=== PATIENT | female | born 1970 | race Two or more races ===

== ENCOUNTER 2021-07-09 15:31 | Outpatient (REF) | payer BC, SELFPAY ==
--- NOTE | ~2021-07-09 | MM_ITS ---
EXAMINATION: MM SCREENING DIGITAL BREAST TOMOSYNTHESIS, BILATERAL CLINICAL INFORMATION: Screening. Asymptomatic. The lifetime risk of breast cancer based on the Tyrer-Cuzick Model is 13%. COMPARISON: Mammography: 12/09/2019, 08/13/2018, 07/18/2017 TECHNIQUE: Digital breast tomosynthesis is performed in both the craniocaudal and mediolateral oblique views along with computer-aided detection (CAD). Synthesized 2D images are generated from the tomosynthesis. FINDINGS: The breasts are heterogeneously dense, which may obscure small masses (ACR BI-RADS breast composition Category c). Parenchymal pattern is similar to prior studies and there is no interval mass or architectural abnormality or developing density. The axilla and skin contours are unremarkable. There is biopsy clip marker again seen central anterior 11:00 right breast. There are scattered bilateral similar appearing calcifications, again more numerous on the left. Focal mild increased similar appearing calcifications are suggested central mid 12:00 left breast. Patient will be recalled for additional magnification views to fully characterize. MM/MM tomosynthesis screening BI IMPRESSION: 1. Left: Increased calcifications central mid 12:00 position. 2. Right: No mammographic evidence of malignancy. ASSESSMENT: BI-RADS 0: Incomplete - Need Additional Imaging Evaluation RECOMMENDATION: 1. Additional views of the left breast (magnification CC, magnification ML). 2. Radiology department staff will contact the patient for additional imaging. This patient's information was entered into a reminder system with a target due date for their next mammogram.
== END 2021-07-09 15:32 | disposition home or self-care (01) ==
LOC: HO.MAMMO 15:31
PROVIDERS: PCP Internal Medicine; Visit Provider Internal Medicine
DX: Z12.31 Encounter for screening mammogram for malignant neoplasm of breast (principal)
CPT/HCPCS: 77063; 77067

== ENCOUNTER 2021-07-16 08:44 | Outpatient (REF) | payer BC, SELFPAY ==
--- NOTE | ~2021-07-16 | MM_ITS ---
EXAMINATION: MM DIAGNOSTIC DIGITAL MAMMOGRAPHY, LEFT CLINICAL INFORMATION: Recall from screening for mild increased calcifications central mid left breast. COMPARISON: Mammography: 01/06/2022, 12/09/2019 TECHNIQUE: Digital mammography is performed in the following views: Magnification CC, magnification ML. FINDINGS: The breasts are heterogeneously dense, which may obscure small masses (ACR BI-RADS breast composition Category c). US additional views show scattered calcifications in the left breast with some additional loosely grouped calcifications central left breast approximately 4 cm from nipple. There are also some punctate fine calcifications on CC view just medial to midline 6 cm from nipple. The MLO view shows scattered calcifications, many showing layering milk of calcium. There are no focal suspicious calcifications. Calcifications are benign-appearing and will be reassessed again in 6 months. Results are discussed with the patient at time of visit. MM/MM added views LT IMPRESSION: Benign-appearing calcifications central left breast slightly increased from prior studies. ASSESSMENT: BI-RADS 3: Probably Benign RECOMMENDATION: Diagnostic left mammography in 6 months. This patient's information was entered into a reminder system with a target due date for their next mammogram.
== END 2021-07-16 08:45 | disposition home or self-care (01) ==
LOC: HO.MAMMO 08:44
PROVIDERS: PCP Internal Medicine; Visit Provider Internal Medicine
DX: R92.1 Mammographic calcification found on diagnostic imaging of breast (principal)
CPT/HCPCS: 77065

== ENCOUNTER 2021-09-11 12:40 | Outpatient (REF) | payer BC, SELFPAY ==
--- NOTE | ~2021-09-11 | US_ITS ---
EXAMINATION: US PELVIS CLINICAL INFORMATION: Excess and frequent menses; the last menstrual period was on 08/28/2021. COMPARISON: Pelvic ultrasound dated 08/24/2015. TECHNIQUE: Ultrasound of the pelvis is performed using both transabdominal and transvaginal transducers along with Doppler. Transvaginal imaging is performed due to inadequate visualization transabdominally. FINDINGS: Uterus: The uterus is anteverted and anteflexed. The uterus measures 9.3 x 4.3 x 5.9 cm. The double wall endometrial thickness is 0.7 mm. The uterus is smooth in contour and has normal myometrial echogenicity. No visible fibroid. Nabothian cysts are seen within the cervix. Adnexa: Both ovaries are visualized.There is normal color flow to the adnexa. There is no ovarian torsion. There is no pelvic ascites or fluid collection. Right ovary measures 1.9 x 1.7 x 1.4 cm (volume 2.3 mL). Left ovary measures 2.1 x 2.2 x 2.5 cm (volume 5.8 mL). A 2.3 cm in maximal diameter simple left ovarian cyst is incidentally noted. US/US pelvic and transvaginal IMPRESSION: 1. A 2.3 cm in maximal diameter simple left ovarian cyst has a benign appearance. No imaging follow-up is recommended. 2. Nabothian cysts are seen within the cervix. 3. Otherwise, unremarkable examination.
== END 2021-09-11 12:41 | disposition home or self-care (01) ==
LOC: HO.HMGCX 12:40
PROVIDERS: PCP Internal Medicine; Visit Provider Advanced Practice Midwife
DX: N92.1 Excessive and frequent menstruation with irregular cycle (principal)
CPT/HCPCS: 76830; 76856

== ENCOUNTER 2022-01-14 14:50 | Outpatient (REF) | payer BC, SELFPAY ==
--- NOTE | ~2022-01-14 | MM_ITS ---
EXAMINATION: MM DIAGNOSTIC DIGITAL BREAST TOMOSYNTHESIS, LEFT CLINICAL INFORMATION: Short interval six-month follow-up benign-appearing calcifications left breast. The lifetime risk of breast cancer based on the Tyrer-Cuzick Model is 13%. COMPARISON: Mammography: 07/16/2021, 07/09/2021 (BI-RADS 0), 12/09/2019 TECHNIQUE: Digital breast tomosynthesis is performed in both the craniocaudal and mediolateral oblique views along with computer-aided detection (CAD). Synthesized 2D images are generated from the tomosynthesis. Additional magnification left CC and magnification left ML views are obtained. FINDINGS: The breasts are heterogeneously dense, which may obscure small masses (ACR BI-RADS breast composition Category c). Breast tissue composition borders on average fibroglandular. There is no interval mass or architectural abnormality or developing density. The axilla and skin contours are unremarkable. There are scattered calcifications again seen upper outer left breast. Calcifications central and central 6:00 left breast are stable to decreased. There are no increasing calcifications or pleomorphic types. They will be reassessed again at time of annual bilateral mammography, due in 6 months. Results are provided to the patient at time of visit by the technologist. MM/MM tomosynthesis diagnostic LT IMPRESSION: No significant changes from prior exam. ASSESSMENT: BI-RADS 3: Probably Benign RECOMMENDATION: Diagnostic mammography at time of annual bilateral mammography, due in 6 months. This patient's information was entered into a reminder system with a target due date for their next mammogram.
== END 2022-01-14 14:51 | disposition home or self-care (01) ==
LOC: HO.MAMMO 14:50
PROVIDERS: Visit Provider Internal Medicine
DX: R92.1 Mammographic calcification found on diagnostic imaging of breast (principal)
CPT/HCPCS: 77061; 77065

== ENCOUNTER 2022-07-15 14:24 | Outpatient (REF) | payer BC, SELFPAY ==
--- NOTE | ~2022-07-15 | MM_ITS ---
EXAMINATION: MM DIAGNOSTIC DIGITAL BREAST TOMOSYNTHESIS, BILATERAL CLINICAL INFORMATION: Due for yearly. Also follow-up probable benign calcifications left breast. The lifetime risk of breast cancer based on the Tyrer-Cuzick Model is 13%. COMPARISON: Mammography: 01/14/2022, 07/16/2021, 07/09/2021 (BI-RADS 0), 12/09/2019 TECHNIQUE: Digital breast tomosynthesis is performed in both the craniocaudal and mediolateral oblique views along with computer-aided detection (CAD). Synthesized 2D images are generated from the tomosynthesis. Additional magnification left CC and magnification left ML x2 views are obtained. FINDINGS: The breasts are heterogeneously dense, which may obscure small masses (ACR BI-RADS breast composition Category c). Breast tissue composition borders on average fibroglandular. There is no developing density or interval mass or architectural abnormality. The axilla and skin contours are unremarkable. Right breast has biopsy clip marker central mid 9:30 position. There are scattered bilateral calcifications, left for follow-up are similar to prior diagnostic exams. Left breast calcifications will be reassessed again at annual bilateral mammography, due in 12 months. Results are provided to the patient at time of visit by the technologist. MM/MM tomosynthesis diagnostic BI IMPRESSION: -No mammographic evidence of malignancy. -Probable benign calcifications left breast similar to prior diagnostic exams. ASSESSMENT: BI-RADS 3: Probably Benign RECOMMENDATION: Diagnostic mammography at time of next annual exam, due in 12 months. This patient's information was entered into a reminder system with a target due date for their next mammogram.
== END 2022-07-15 14:25 | disposition home or self-care (01) ==
LOC: HO.MAMMO 14:24
PROVIDERS: PCP Internal Medicine; Visit Provider Internal Medicine
DX: R92.1 Mammographic calcification found on diagnostic imaging of breast (principal)
CPT/HCPCS: 77062; 77066

== ENCOUNTER 2022-07-31 14:07 | Outpatient (REF) | payer BC, SELFPAY ==
--- NOTE | ~2022-07-31 | US_ITS ---
EXAMINATION: US DIAGNOSTIC ULTRASOUND BREAST, LEFT CLINICAL INFORMATION: Chronic fullness outer left breast noted by patient. Pain 6-7 months. Prior history benign left breast cyst aspiration 2018. COMPARISON: Mammography 07/15/2022, 01/14/2022, cyst aspiration 08/19/2018, ultrasound left breast 08/13/2018. TECHNIQUE: Ultrasound of the breast is performed with real-time wagner scale imaging and color Doppler. Patient is able to point areas of concern at time of imaging. FINDINGS: There is no focal suspicious finding. There is no cystic or solid mass, architectural abnormality, duct ectasia, or edema in the soft tissue planes. No hyperemia on color Doppler. No skin thickening. Results are discussed with the patient at time of visit. If there remains a clinically palpable concern, surgical consult may be considered for further assessment. Otherwise, patient due for follow-up diagnostic mammography in 12 months (probable benign left breast calcifications). US/US breast LT limited IMPRESSION: Normal study. ASSESSMENT: BI-RADS 1: Negative RECOMMENDATION: 1. Patient should be managed based on the clinical impression. If there remains a clinically palpable concern, further evaluation may be considered with surgical consult. Decision to proceed with biopsy should be based on clinical grounds and degree of clinical concern. 2. Otherwise, bilateral diagnostic mammography in 12 months (follow-up probable benign calcifications). This patient's information was entered into a reminder system with a target due date for their next mammogram.
== END 2022-07-31 14:08 | disposition home or self-care (01) ==
LOC: HO.MAMMO 14:07
PROVIDERS: PCP Internal Medicine; Visit Provider Internal Medicine
DX: N63.21 Unspecified lump in the left breast, upper outer quadrant (principal)
CPT/HCPCS: 76642

== ENCOUNTER → 2022-08-12 12:34 | Outpatient (BNVA) | payer BC, SELFPAY | PROVIDERS: PCP Internal Medicine; Visit Provider Surgery | DX: Z13.89 Encounter for screening for other disorder (principal) ==

== ENCOUNTER 2022-08-18 15:32 | Outpatient (REF) | payer BC, SELFPAY ==
--- NOTE | ~2022-08-18 | US_ITS ---
EXAMINATION: US PELVIC AND TRANSVAGINAL CLINICAL INFORMATION: Abnormal uterine bleeding. COMPARISON: None available. TECHNIQUE: Ultrasound of the pelvis is performed using both transabdominal and transvaginal transducers along with Doppler. Transvaginal imaging is performed due to inadequate visualization transabdominally. FINDINGS: UTERUS: The uterus is anteverted and measures 10.6 x 4.8 x 5.1 cm. The double wall endometrial thickness is 10 mm. Small amount of free fluid is present in the endometrial canal. The uterus is smooth in contour and has normal myometrial echogenicity. No visible fibroid. ADNEXA: Both ovaries are visualized. There is normal color flow to the adnexa. There is no ovarian torsion. There is no pelvic ascites or fluid collection. Right ovary measures 3.8 x 1.9 x 3.4 cm for a volume of 12.8 mL which includes 2 simple cysts measuring 1.3 and 2.1 cm. Left ovary measures 2.3 x 1.3 x 1.7 cm for a volume of 2.7 mL. US/US pelvic and transvaginal IMPRESSION: No significant abnormality is seen.
== END 2022-08-18 15:33 | disposition home or self-care (01) ==
LOC: HO.US 15:32
PROVIDERS: PCP Internal Medicine; Visit Provider Advanced Practice Midwife
DX: N93.9 Abnormal uterine and vaginal bleeding, unspecified (principal)
CPT/HCPCS: 76830; 76856

== ENCOUNTER 2023-01-15 15:54 | Outpatient (REF) | payer BC, SELFPAY ==
[2023-01-15 17:50] LABS: MANUAL DIFF FLAG NO
[2023-01-15 18:11] LABS: Basophils Percent Auto 0.6 % (0-2); Eosinophils Absolute Auto 0.2 X10*3/uL (0.0-0.4); Eosinophils Percent Auto 2.7 % (0-4); Hemoglobin 10.8 g/dl (12.0-16.0); Imm Gran Abs Auto 0.02 X10*3/uL (0.00-0.03); Imm Gran Pct Auto 0.3 % (0.0-0.4); Lymphocytes Absolute Auto 2.1 X10*3/uL (1.2-4.9); Lymphocytes Percent Auto 30.6 % (20-40); Mean Corpuscular HGB Conc 32.7 g/dl (31.0-35.0); Mean Corpuscular Hemoglobin 28.3 pg (27.0-33.0); Mean Corpuscular Volume 86.4 fL (80.0-98.0); Mean Platelet Volume 11.4 fL (9.4-12.3); Monocytes Absolute Auto 0.7 X10*3/uL (0.1-1.2); Monocytes Percent Auto 10.6 % (2-11); Neutrophils Absolute Auto 3.8 x10*3/uL (2.0-8.3); Neutrophils Percent Auto 55.2 % (45-73); Platelet Count 256 X10*3/uL (160-400); Red Blood Count 3.82 X10*6/uL (4.20-5.50); Red Cell Distribution Width 14.4 % (11.0-16.0)
[2023-01-15 18:50] LABS: Alanine Aminotransferase 11 U/L (0-31); Albumin Level 4.1 g/dL (3.5-5.0); Alkaline Phosphatase 61 U/L (39-117); Anion Gap 13 (12-20); Aspartate Amino Transferase 19 U/L (5-31); Bilirubin Direct < 0.2 mg/dL (0.0-0.5); Bilirubin Total 0.1 mg/dL (0.0-1.0); Blood Urea Nitrogen 20 mg/dL (9-16); C Reactive Protein < 0.10 mg/dL (< or = 0.50); Carbon Dioxide 23 mmol/L (22-29); Chloride 105 mmol/L (96-108); Estimated Glomerular Filt Rate > 60; Glucose Random 87 mg/dL (60-115); Iron 63 mcg/dL (30-160); Percent Iron Saturation 21 % (15-50); Sodium 137 mmol/L (135-145); Total Iron Binding Capacity 303 mcg/dL (228-428); Total Protein 7.3 g/dL (6.5-8.0); Unsaturated Iron Binding 240 ug/dL
[2023-01-15 18:52] LABS: Vitamin B12 653 pg/mL (200-900)
[2023-01-15 18:54] LABS: TSH reflex Free T4 0.75 uIU/mL (0.32-4.0)
[2023-01-20 21:37] LABS: Lyme Abs Screen <0.90 index
== END 2023-01-15 15:55 | disposition home or self-care (01) ==
LOC: HO.CHCLDS 15:54
PROVIDERS: Visit Provider Pediatrics
DX: D50.0 Iron deficiency anemia secondary to blood loss (chronic) (principal)
CPT/HCPCS: 36415; 80048; 80076; 82607; 83540; 84443; 85025; 86140; 86617; 86618

== ENCOUNTER 2023-02-12 | Outpatient (REF) | payer BC, SELFPAY | END 2023-02-12 00:01 | disposition home or self-care (01) | LOC: HO.LNP | PROVIDERS: Visit Provider Family Medicine | DX: N93.9 Abnormal uterine and vaginal bleeding, unspecified (principal) | CPT/HCPCS: 88305 ==

== ENCOUNTER 2023-07-02 14:54 | Outpatient (AMB) | payer BC, SELFPAY ==
--- NOTE | 2023-07-02 15:10 | A.OFFVIS_ITS ---
Intake Vital Signs 07/02/23 15:11 Height 5 ft 2 in Weight 143 lb BMI 26.2 Intake Visit Reasons: N/P left elbow pain Intake Note: Olga 53 yr old female who is right hand dominant, presents today for a new patient visit for her left shoulder pain. States pain started about 2 months . Recalls no injury. Patient explains her pain is mainly by her elbow on lateral aspect of elbow. Patient states her pain increases when lifting and reparative motion, and worsens at nigh time. Denies therapy, injection and has numbness and tingling in both hands. 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 She states she has pain at the lateral aspect of her elbow which is aggravated with lifting, repetitive motions, and at night. She also c/o numbness and tingling in her bilateral hands. She denies any recent injury has not had any treatment in the past. [facility] Medical History (Updated 07/02/23 @ 15:31 by Juhi Carson PA-C) Anemia Surgical History History of Family History (Updated 08/11/22 @ 14:02 by LINDA Khan) Maternal Aunt Colon cancer Social History Alcohol intake: current Alcohol intake frequency: holidays/special occasions only Alcohol type: other Patient Tobacco Use Status: Never used Tobacco Current occupation: [employer]/ rt hand Review of Systems Const All systems reviewed & are unremarkable except as noted in HPI and below Physical Exam Vital Signs: BMI result Body Mass Index 26.2 Const General: cooperative, healthy appearing, comfortable, no acute distress, well developed and alert Orientation/consciousness: patient oriented x3 HEENT Head: Yes normal to inspection, Yes normocephalic and Yes atraumatic Eyes General: appearance normal, both eyes and all related structures Resp Effort & Inspection: normal respiratory effort and able to speak in complete sentences Cardio Rate: regular rate Peripheral pulses: Peripheral pulses 2+ throughout GI Palpation (GI): Soft to palpation Skin Lesions: no lesions Rashes: no rashes Neuro General: patient oriented x3 Extrem Other: Left elbow: Skin intact. No erythema or swelling. ROM full without pain. Tenderness over the lateral epicondyle and pain with resisted wrist extension. NVI. Assessment & Plan Assessment & Plan (1) Left lateral epicondylitis: Code(s): M77.12 - Lateral epicondylitis, left elbow Plan We discussed options which include PT, NSAIDs and injections. The patient will defer on the injection today and proceed with PT and NSAIDs. If symptoms persist, the patient will contact me for an injection, otherwise, PRN. Orders: Orders OT Evaluation and Treatment 07/02/23 M77.12 - Lateral epicondylitis, left elbow Patient Instructions: Scribed for Juhi Carson PA-C, by Gaston Oliveira medical housekeeper, on 07/02/2023 at 3:00 PM EST. I, Juhi Carson PA-C, have personally reviewed and agree with the information entered by the scribe. Coding Level of Care Code New Pt Level 3 (81831) Diagnoses Left lateral epicondylitis M77.12
[2023-07-02 15:11] VITALS: BMI 26.2
== END 2023-07-02 15:36 | disposition home or self-care (01) ==
PROVIDERS: PCP Internal Medicine; Visit Provider Physician Assistant
DX: M77.12 Lateral epicondylitis, left elbow (principal)
CPT/HCPCS: 99203

== ENCOUNTER → 2023-07-02 14:54 | Outpatient (BNVA) | payer BC, SELFPAY | PROVIDERS: PCP Internal Medicine; Visit Provider Physician Assistant ==

== ENCOUNTER 2023-07-16 14:46 | Outpatient (REF) | payer BC, SELFPAY ==
--- NOTE | ~2023-07-16 | MM_ITS ---
EXAMINATION: MM DIAGNOSTIC DIGITAL BREAST TOMOSYNTHESIS, BILATERAL CLINICAL INFORMATION: 1 year follow-up left breast probably benign calcifications, several groups. Patient also due for routine bilateral screening. COMPARISON: Mammography: 07/15/2022, 01/14/2022, 07/16/2021, 07/09/2021 (BI-RADS 0), 12/09/2019. TECHNIQUE: Digital breast tomosynthesis is performed in both the craniocaudal and mediolateral oblique views along with computer-aided detection (CAD). Synthesized 2D images are generated from the tomosynthesis. In addition to standard views, 2-D spot magnification left CC x2 and ML views x2 were performed. FINDINGS: The breasts are heterogeneously dense, which may obscure small masses (ACR BI-RADS breast composition Category c). Breast tissue borders on extremely dense. No developing mass, architectural distortion, skin thickening, or axillary abnormality. There is a post benign biopsy clip again noted in the slightly upper outer right breast, middle one third. Scattered right breast calcifications are unchanged and appear benign. The heterogeneously dense and somewhat nodular parenchymal pattern is unchanged from multiple prior exams. At least 3 loose groups of calcifications are present in the left breast upper, mid, and lower quadrants, predominantly mid and lateral, which appears stable in number, morphology, without aggressive changes. Several appear to again layer suggesting regions of milk of calcium. There has been no significant change since 07/09/2021, and these findings are benign. MM/MM tomosynthesis diagnostic BI IMPRESSION: There are no findings suspicious for malignancy in either breast. Scattered, loosely grouped, and layering calcifications in the left breast are stable from 07/09/2021, consistent with benignity. No aggressive changes over 2 years. No further follow-up recommended. Stable benign findings right breast. Recommend the patient return to routine annual screening to include both breasts. ASSESSMENT: BI-RADS BI-RADS 2 - Benign Findings RECOMMENDATION: 1 year F/U Results were provided to the patient at time of visit by the technologist. This patient's information was entered into a reminder system with a target due date for their next mammogram.
== END 2023-07-16 14:47 | disposition home or self-care (01) ==
LOC: HO.MAMMO 14:46
PROVIDERS: PCP Internal Medicine; Visit Provider Internal Medicine
DX: R92.1 Mammographic calcification found on diagnostic imaging of breast (principal)
CPT/HCPCS: 77062; 77066

== ENCOUNTER → 2023-07-16 15:00 | Outpatient (BNV) | payer BC, SELFPAY | PROVIDERS: PCP Internal Medicine; Visit Provider Radiology Diagnostic Radiology | DX: R92.1 Mammographic calcification found on diagnostic imaging of breast (principal); R92.333 Mammographic heterogeneous density, bilateral breasts | CPT/HCPCS: 77062; 77066 ==

== ENCOUNTER 2023-08-05 15:30 | Outpatient (RCR) | payer BC, SELFPAY ==
--- NOTE | 2023-07-15 16:26 | MHC.OT.EP ---
[address] [phone] Occupational Therapy Plan of Care Patient Name: Olga Anderson I Date of Evaluation: 07/15/23 Diagnosis: Left elbow lateral epicondylitis Pain Location: 9 left lateral elbow Pain Score: 9 Pain Scale Used: Numeric (0 - 10) Aggravating Factors: Gripping. Lifting..carrying Alleviating Factors: Assessment: Pt is a 53 yo right dominant female with worsening left lateral elbow pain over the past few months. 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 She has been on light duty this past wk. Pt presents with S+S of left lateral epicondylitis and underlying CTS sx. She reports she has not worn her wrist splint at night due to discomfort. 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 Thank you once again for your referral.
--- NOTE | 2023-10-13 13:36 | MHC.OT.DC ---
[address] [phone] F: [phone] Occupational Therapy Discharge Note Patient Name: Olga Anderson I Provider: Juhi Carson Diagnosis: Left elbow lateral epicondylitis Date of Surgery: Date of Evaluation: 07/15/23 Date of Discharge: Treatments to Date: 5 Cancellations to Date: No Shows to Date: Discharge Status: Discharge Summary: Pt reports increased elbow pain (a 9/10 today) She reports right hand use only at work with very light left hand use on light duty Pt has been seen x 4 wks with increased ease with elbow ROM and Mill stretch. 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
== END 2023-10-13 13:37 | disposition home or self-care (01) ==
LOC: HO.OT 15:30
PROVIDERS: PCP Internal Medicine; Visit Provider Physician Assistant
DX: M77.12 Lateral epicondylitis, left elbow (principal)
CPT/HCPCS: 97033; 97035; 97110; 97140; 97166; 97535

== ENCOUNTER 2023-08-10 13:08 | Outpatient (AMB) | payer BC, SELFPAY ==
--- NOTE | 2023-08-10 13:26 | MHC.OFFVIS ---
Intake Vital Signs 08/10/23 13:28 Height 5 ft 2 in Weight 143 lb BMI 26.2 Intake Visit Reasons: ov- left elbow pain Intake Note: Olga a 53 year old female presents today for a follow up of left elbow. Patient reports that she has completed OT however she continues to have pain and discomfort. States that she is currently doing light duty at work. Allergies No Known Allergies Allergy (Unverified 08/10/23 13:30) Medication List - Last Reconciled 08/10/23 by Juhi Carson PA-C No Known Home Meds HPI ov- left elbow pain HPI Details 53 yo female returns to the office today f/u left elbow pain. She states she has been attending OT with some relief. She continues to have some discomfort at the end of her shift at work. 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 Review of Systems Const All systems reviewed & are unremarkable except as noted in HPI and below Physical Exam Vital Signs: BMI result Body Mass Index 26.2 Const General: cooperative, healthy appearing, comfortable, no acute distress, well developed and alert Orientation/consciousness: patient oriented x3 HEENT Head: Yes normal to inspection, Yes normocephalic and Yes atraumatic Eyes General: appearance normal, both eyes and all related structures Resp Effort & Inspection: normal respiratory effort and able to speak in complete sentences Cardio Rate: regular rate Peripheral pulses: Peripheral pulses 2+ throughout GI Palpation (GI): Soft to palpation Skin Lesions: no lesions Rashes: no rashes Neuro General: patient oriented x3 Extrem Other: Left elbow: Skin intact. No erythema or swelling. ROM full without pain. Tenderness over the lateral epicondyle and pain with resisted wrist extension. NVI. Office Procedures Joint Injection/Drain Joint Injection/Drain Primary Site: left tennis elbow Prep: site was prepped using aseptic technique, ethochloride spray was applied and injection warnings given Injected: 40 mg of, with 1 mL of, 1% plain lidocaine and decadron Procedure: The patient tolerated the procedure well and there was some relief with the local anesthesia Coding 16808 - Epicondyle Procedure code (CPT) selection complete Assessment & Plan Assessment & Plan (1) Left lateral epicondylitis: Code(s): M77.12 - Lateral epicondylitis, left elbow Plan: We discussed options today, which include steroid injection. The patient did consent to move forward with the injection, which was tolerated well.? I recommended rest, ice and elevation and OTC antiinflammatories prn for discomfort. If symptoms persist over the next 6-8 weeks, they will contact our office, otherwise, prn She was also given a work note RTW full duty in 2 weeks. Medications: New celecoxib (Celebrex) 200 mg PO BID 60 caps 3RF 30 days Coding Level of Care Code Est Pt Level 3 (75520) Diagnoses Left lateral epicondylitis M77.12 CPT Codes Coding - Joint 2: 35992 - Epicondyle ([id number])
[2023-08-10 13:28] VITALS: BMI 26.2
== END 2023-08-10 14:04 | disposition home or self-care (01) ==
PROVIDERS: PCP Internal Medicine; Visit Provider Physician Assistant
DX: M77.12 Lateral epicondylitis, left elbow (principal)
CPT/HCPCS: 20550; 99214

== ENCOUNTER → 2023-08-10 13:08 | Outpatient (BNVA) | payer BC, SELFPAY | PROVIDERS: PCP Internal Medicine; Visit Provider Physician Assistant | DX: M77.12 Lateral epicondylitis, left elbow (principal) | CPT/HCPCS: 20550; J1100 ==

== ENCOUNTER 2023-10-05 10:05 | Outpatient (REF) | payer BC, SELFPAY ==
[2023-10-05 14:32] LABS: MANUAL DIFF FLAG NO
[2023-10-05 14:39] LABS: Basophils Percent Auto 0.5 % (0-2); Eosinophils Absolute Auto 0.1 X10*3/uL (0.0-0.4); Eosinophils Percent Auto 1.8 % (0-4); Hematocrit 32.7 % (37.0-47.0); Hemoglobin 10.6 g/dl (12.0-16.0); Imm Gran Abs Auto 0.01 X10*3/uL (0.00-0.03); Imm Gran Pct Auto 0.2 % (0.0-0.4); Lymphocytes Absolute Auto 1.1 X10*3/uL (1.2-4.9); Lymphocytes Percent Auto 19.1 % (20-40); Mean Corpuscular HGB Conc 32.4 g/dl (31.0-35.0); Mean Corpuscular Volume 86.3 fL (80.0-98.0); Mean Platelet Volume 11.7 fL (9.4-12.3); Monocytes Absolute Auto 0.6 X10*3/uL (0.1-1.2); Monocytes Percent Auto 11.4 % (2-11); Neutrophils Absolute Auto 3.7 x10*3/uL (2.0-8.3); Platelet Count 245 X10*3/uL (160-400); Red Blood Count 3.79 X10*6/uL (4.20-5.50); Red Cell Distribution Width 14.9 % (11.0-16.0); White Blood Count 5.5 X10*3/uL (4.8-10.8)
[2023-10-05 14:57] LABS: Alanine Aminotransferase 11 U/L (0-31); Alkaline Phosphatase 61 U/L (39-117); Anion Gap 12 (12-20); Aspartate Amino Transferase 18 U/L (5-31); Bilirubin Total 0.5 mg/dL (0.0-1.0); Blood Urea Nitrogen 15 mg/dL (9-16); Calcium 9.3 mg/dL (8.4-10.2); Carbon Dioxide 22 mmol/L (22-29); Chloride 110 mmol/L (96-108); Estimated Glomerular Filt Rate > 60; Glucose Random 85 mg/dL (60-115); Sodium 140 mmol/L (135-145); Total Protein 7.1 g/dL (6.5-8.0)
[2023-10-05 15:16] LABS: TSH reflex Free T4 1.16 uIU/mL (0.32-4.0)
[2023-10-06 09:36] LABS: HIV AB/AG Nonreactive (Nonreactive); HIV Num 1 0.04 S/CO (0.00-0.99)
[2023-10-07 11:03] LABS: HCV Log PCR <1.18 NOT DETECTED Log IU/mL (NOT DETECTED); HepC Viral Load <15 NOT DETECTED IU/mL (NOT DETECTED)
== END 2023-10-05 10:06 | disposition home or self-care (01) ==
LOC: HO.CHCLDS 10:05
PROVIDERS: Visit Provider Internal Medicine
DX: Z00.00 Encounter for general adult medical examination without abnormal findings (principal); K59.09 Other constipation
CPT/HCPCS: 36415; 80053; 84443; 85025; 87389; 87522

== ENCOUNTER 2023-10-13 08:15 | Outpatient (REF) | payer BC, SELFPAY ==
[2023-10-13 15:04] LABS: Immature Retic Fraction 11.4 % (3.0-15.9); Retic HGB Equivalent 29.4 pg (30.0-35.0); Reticulocyte Percent 1.2 % (0.5-1.8); Reticulocytes Absolute 0.041 X10*6/uL (0.026-0.095)
[2023-10-13 15:24] LABS: Iron 60 mcg/dL (30-160); Percent Iron Saturation 22 % (15-50); Total Iron Binding Capacity 271 mcg/dL (228-428); Unsaturated Iron Binding 211 ug/dL
[2023-10-13 15:41] LABS: Ferritin 17 ng/mL (10-250)
== END 2023-10-13 08:16 | disposition home or self-care (01) ==
LOC: HO.CHCLDS 08:15
PROVIDERS: Visit Provider Internal Medicine
DX: D50.0 Iron deficiency anemia secondary to blood loss (chronic) (principal)
CPT/HCPCS: 36415; 82728; 83540; 85045

== ENCOUNTER 2024-01-26 14:30 | Outpatient (RCR) | payer BC, SELFPAY ==
[2023-12-08 14:16] VITALS: PULSE 60; RESP 18; TEMP 37.1; O2SAT 98; BMI 25.1
[2023-12-08] MEDS: Iron Sucrose Complex 200 MG in 0.9 % Sodium Chloride 100 ML 440 MG IV (14:23)
[2023-12-15 14:22] VITALS: BP 112/67; RESP 4; TEMP 37.2; O2SAT 100
[2023-12-15] MEDS: Iron Sucrose Complex 200 MG in 0.9 % Sodium Chloride 100 ML 440 MG IV (14:29)
[2023-12-15] MEDS: 0.9 % Sodium Chloride Flush 10 ML SYRINGE 5 ML IVFLUSH (14:47)
[2023-12-22 14:20] VITALS: BP 121/69; PULSE 61; RESP 16; TEMP 36.4; O2SAT 98
[2023-12-22] MEDS: Iron Sucrose Complex 200 MG in 0.9 % Sodium Chloride 100 ML 440 MG IV (14:42)
[2023-12-22] MEDS: 0.9 % Sodium Chloride Flush 10 ML SYRINGE 5 ML IVFLUSH (14:58)
[2023-12-29 14:24] VITALS: BP 127/67; PULSE 69; RESP 16; TEMP 37; O2SAT 98
[2023-12-29] MEDS: Iron Sucrose Complex 200 MG in 0.9 % Sodium Chloride 100 ML 440 MG IV (14:36)
[2023-12-29] MEDS: 0.9 % Sodium Chloride Flush 10 ML SYRINGE 5 ML IVFLUSH (14:59)
--- NOTE | 2023-12-29 15:31 | HO.INF ---
cbc and ferritin drawn
[2023-12-29 15:43] LABS: Hematocrit 30.7 % (37.0-47.0); Mean Corpuscular HGB Conc 32.6 g/dl (31.0-35.0); Mean Corpuscular Hemoglobin 27.9 pg (27.0-33.0); Mean Corpuscular Volume 85.5 fL (80.0-98.0); Mean Platelet Volume 10.2 fL (9.4-12.3); Platelet Count 249 X10*3/uL (160-400); Red Blood Count 3.59 X10*6/uL (4.20-5.50); Red Cell Distribution Width 16.4 % (11.0-16.0); White Blood Count 8.3 X10*3/uL (4.8-10.8)
[2023-12-29 16:23] LABS: Ferritin 292 ng/mL (10-250)
[2024-01-05 14:26] VITALS: BP 128/69; PULSE 63; RESP 18; TEMP 36.4; O2SAT 98
[2024-01-05] MEDS: Iron Sucrose Complex 200 MG in 0.9 % Sodium Chloride 100 ML 440 MG IV (14:38)
[2024-01-05] MEDS: 0.9 % Sodium Chloride Flush 10 ML SYRINGE 5 ML IVFLUSH (14:56)
[2024-01-12 14:20] VITALS: BP 132/81; PULSE 68; RESP 16; TEMP 36.6; O2SAT 98
[2024-01-12] MEDS: Iron Sucrose Complex 200 MG in 0.9 % Sodium Chloride 100 ML 440 MG IV (14:27)
[2024-01-19 14:26] VITALS: BP 141/80; PULSE 65; RESP 16; TEMP 36.4; O2SAT 100
[2024-01-19] MEDS: Iron Sucrose Complex 200 MG in 0.9 % Sodium Chloride 100 ML 440 MG IV (14:38)
[2024-01-19] MEDS: 0.9 % Sodium Chloride Flush 10 ML SYRINGE 5 ML IVFLUSH (14:55)
[2024-01-26 14:17] VITALS: BP 142/96; PULSE 73; RESP 16; TEMP 36.6; O2SAT 99
[2024-01-26] MEDS: Iron Sucrose Complex 200 MG in 0.9 % Sodium Chloride 100 ML 440 MG IV (14:25)
[2024-01-26] MEDS: 0.9 % Sodium Chloride Flush 10 ML SYRINGE 5 ML IVFLUSH (14:46)
--- NOTE | 2024-01-26 14:58 | HO.INF ---
phlebotomy at bedside
[2024-01-26 15:10] LABS: MANUAL DIFF FLAG NO
[2024-01-26 15:12] LABS: Basophils Percent Auto 0.4 % (0-2); Eosinophils Absolute Auto 0.1 X10*3/uL (0.0-0.4); Eosinophils Percent Auto 1.8 % (0-4); Hematocrit 36.2 % (37.0-47.0); Hemoglobin 11.8 g/dl (12.0-16.0); Imm Gran Abs Auto 0.02 X10*3/uL (0.00-0.03); Imm Gran Pct Auto 0.4 % (0.0-0.4); Lymphocytes Absolute Auto 1.1 X10*3/uL (1.2-4.9); Lymphocytes Percent Auto 20.2 % (20-40); Mean Corpuscular HGB Conc 32.6 g/dl (31.0-35.0); Mean Corpuscular Hemoglobin 27.9 pg (27.0-33.0); Mean Corpuscular Volume 85.6 fL (80.0-98.0); Mean Platelet Volume 10.1 fL (9.4-12.3); Monocytes Absolute Auto 0.5 X10*3/uL (0.1-1.2); Monocytes Percent Auto 9.8 % (2-11); Neutrophils Absolute Auto 3.7 x10*3/uL (2.0-8.3); Neutrophils Percent Auto 67.4 % (45-73); Platelet Count 242 X10*3/uL (160-400); Red Blood Count 4.23 X10*6/uL (4.20-5.50); Red Cell Distribution Width 16.5 % (11.0-16.0); White Blood Count 5.5 X10*3/uL (4.8-10.8)
[2024-01-26 15:49] LABS: Ferritin 857 ng/mL (10-250)
== END 2024-01-26 15:06 | disposition home or self-care (01) ==
LOC: HO.INF 14:30
PROVIDERS: Visit Provider Internal Medicine Medical Oncology
DX: D50.9 Iron deficiency anemia, unspecified (principal)
CPT/HCPCS: 36415; 82728; 85025; 85027; 96365; 96374; J1756

== ENCOUNTER 2024-02-15 15:11 | Outpatient (AMB) | payer BC, SELFPAY ==
[2024-02-15 15:14] VITALS: BP 138/66; PULSE 60; O2SAT 100; BMI 26.7
--- NOTE | 2024-02-15 15:14 | MHC.OFFVIS ---
Vital Signs 02/15/24 15:14 Height 5 ft 2 in Weight 145 lb 15.136 oz BMI 26.7 BP 138/66 Blood Pressure Location Rt brachial Position Sitting Pulse 60 Pulse Source Pulse Oximeter Pulse Oximetry (%) 100 Oxygen Delivery Method Room Air Intake Visit Reasons: Iron deficiency anemia Intake Note: Olga presents in office today for a scheduled initial assessment. CC; Patient's most recent labs performed as of 09/2023. This appointment is possibly for a colo consult? Pt reports that they were referred by general surgery for colo and EGD consult. Pt denies any current concerns pertaining to GI sx. Pt has previously experienced upper abdominal, nausea, GERD sx, and constipation. Pt also has experienced hemorrhoids as well. Pt states that their sx typically present worse at night. Pt also reports pertinent famliy hx including her maternal aunt (colo) and her father (GI unspecified). Security Incident Handler Required: No Allergies No Known Allergies Allergy (Verified 02/22/24 15:41) HPI HPI Iron deficiency anemia: Details: 53-year-old female with no significant past medical history is here today for initial consultation. Patient was sent to us for evaluation of her symptoms. Patient has been experiencing in the past epigastric pain, postprandial abdominal bloating and burning sensation in upper abdomen. Evaluated by General surgery for external and possible internal hemorrhoids and supposed to go for procedure. Nothing booked yet. Patient is due to go for colonoscopy as well. History of iron deficiency anemia, on iron infusion, seen by Hematology. [facility] Medical History Anemia Surgical History History of Family History Maternal Aunt Colon cancer Breast cancer Social History Household Members: Spouse Alcohol intake: current Alcohol intake frequency: holidays/special occasions only Alcohol type: other Patient Tobacco Use Status: Never used Tobacco Use of substances other than those prescribed or required for medical reasons: No Have you been hit, kicked, punched, or otherwise hurt by someone within the past year? 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 Review of Systems Const Denies weight gain and Denies weight loss ENT Reports no additional complaints, Denies dysphagia and Denies odynophagia Card Reports no additional complaints Resp Reports no additional complaints GI Denies abdominal pain, Denies belching, Denies melena, Reports bloating (Occasional), Denies change in bowel habits, Denies dysphagia, Denies excessive flatus, Denies dyspepsia, Reports heartburn (Occasional), Denies diarrhea, Denies loose stools, Denies nausea, Denies odynophagia and Denies vomiting Reports no additional complaints Musc Reports no additional complaints Neuro Reports no additional complaints Psych Reports no additional complaints Endo Reports no additional complaints Physical Exam Vital Signs: Last Vital Signs Pulse 60 02/15/24 15:14 BP 138/66 02/15/24 15:14 Pulse Ox 100 02/15/24 15:14 Oxygen Delivery Method Room Air 02/15/24 15:14 BMI result Body Mass Index 26.7 Const General: healthy appearing, no acute distress and well developed Nutritional Appearance: well nourished Orientation/consciousness: patient oriented x3 Resp Effort & Inspection: normal respiratory effort, able to speak in complete sentences, no tracheal deviation and symmetric chest movement Auscultation: clear to auscultation bilaterally Cardio Rate: regular rate GI Inspection: Yes normal to inspection and No distended Palpation (GI): Soft to palpation, not firm, nontender and No hepatosplenomegaly present Auscultation: normal bowel sounds General: Yes no CVA tenderness Back/Spine/Pelvis Back: no CVA tenderness Skin General skin exam: elasticity normal, turgor normal and dry skin Neuro General: patient oriented x3 Psych Appearance: grossly normal Mental Status: mental status grossly normal Assessment & Plan Assessment & Plan (1) Normochromic normocytic anemia: Code(s): D64.9 - Anemia, unspecified Category: Medical (2) Postprandial epigastric pain: Code(s): R10.13 - Epigastric pain (3) GERD (gastroesophageal reflux disease): Code(s): K21.9 - Gastro-esophageal reflux disease without esophagitis Qualifiers: Esophagitis presence: esophagitis presence not specified Qualified Code(s): K21.9 - Gastro-esophageal reflux disease without esophagitis Plan Will send patient to rule out celiac, H pylori test today and if positive will treat empirically. Will check vitamin B12, folate and vitamin-D level. Unsure when patient will go for hemorrhoidectomy, will hold off on colonoscopy, however she is due to go for more blood work and if level continues to be low she will be booked for procedure. Patient denies any issues with anesthesia in the past. No history of sleep apnea. Not on any anticoagulation medication. Thank you for allowing me to participate in her care Orders: Orders Transglutaminase Ab IgG 02/15/24 R10.9 - Unspecified abdominal pain Transglutaminase IgA 02/15/24 R10.9 - Unspecified abdominal pain H Pylori Breath Test 02/18/24 K21.9 - Gastro-esophageal reflux disease without esophagitis Vitamin B12 and Folate 02/15/24 R19.7 - Diarrhea, unspecified Vitamin D 25-OH (D2 and D3) 02/15/24 E55.9 - Vitamin D deficiency, unspecified Medications: New famotidine (Pepcid) 20 mg PO BEDTIME 30 tabs 3RF K21.9 - Gastro-esophageal reflux disease without esophagitis Coding Level of Care Code New Pt Level 4 (61159) Diagnoses Normochromic normocytic anemia D64.9 Postprandial epigastric pain R10.13 Gastroesophageal reflux disease, unspecified whether esophagitis present K21.9 Esophagitis presence: esophagitis presence not specified Time Spent (min) 45 Comment 30 minutes spent with patient and additional 15 minutes spent reviewing her records
== END 2024-02-18 14:10 | disposition home or self-care (01) ==
PROVIDERS: PCP Orthopaedic Surgery; Visit Provider Nurse Practitioner Family
DX: D64.9 Anemia, unspecified (principal); R10.13 Epigastric pain; K21.9 Gastro-esophageal reflux disease without esophagitis
CPT/HCPCS: 99204

== ENCOUNTER → 2024-02-15 15:11 | Outpatient (BNVA) | payer BC, SELFPAY | PROVIDERS: PCP Orthopaedic Surgery; Visit Provider Nurse Practitioner Family ==

== ENCOUNTER 2024-02-18 12:05 | Outpatient (REF) | payer BC, SELFPAY ==
[2024-02-19 11:50] LABS: H Pylori Breath Test Negative (Negative)
== END 2024-02-18 12:06 | disposition home or self-care (01) ==
LOC: HO.LNP 12:05
PROVIDERS: Visit Provider Nurse Practitioner Family
DX: K21.9 Gastro-esophageal reflux disease without esophagitis (principal)
CPT/HCPCS: 83013

== ENCOUNTER → 2024-02-22 15:40 | Outpatient (BNV) | payer BC, SELFPAY | PROVIDERS: PCP Orthopaedic Surgery; Referring Provider Orthopaedic Surgery; Visit Provider Internal Medicine Medical Oncology | DX: D50.9 Iron deficiency anemia, unspecified (principal) | CPT/HCPCS: 99213 ==

== ENCOUNTER 2024-08-05 15:31 | Outpatient (REF) | payer BC, SELFPAY ==
[2024-08-05 16:11] LABS: Immature Retic Fraction 4.1 % (3.0-15.9); Reticulocyte Percent 0.9 % (0.5-1.8); Reticulocytes Absolute 0.036 X10*6/uL (0.026-0.095)
[2024-08-05 17:21] LABS: Folate 10.4 ng/mL (> or = 4.0); Vitamin B12 526 pg/mL (200-900)
[2024-08-05 17:30] LABS: Iron 67 mcg/dL (30-160); Percent Iron Saturation 29 % (15-50); Total Iron Binding Capacity 228 mcg/dL (228-428); Unsaturated Iron Binding 161 ug/dL
[2024-08-05 17:45] LABS: Ferritin 350 ng/mL (10-250)
[2024-08-08 18:08] LABS: Transglutaminase Ab IgG <1.0 U/mL; Transglutaminase IgA <1.0 U/mL
[2024-08-12 15:48] LABS: Vitamin D 25-OH, D2 <4 ng/mL; Vitamin D 25-OH, D3 17 ng/mL; Vitamin D 25-OH, Total 17 ng/mL (30-100)
== END 2024-08-05 15:32 | disposition home or self-care (01) ==
LOC: HO.LAB 15:31
PROVIDERS: PCP Internal Medicine; Visit Provider Nurse Practitioner Family
DX: D50.0 Iron deficiency anemia secondary to blood loss (chronic) (principal); R10.9 Unspecified abdominal pain; R19.7 Diarrhea, unspecified; E55.9 Vitamin D deficiency, unspecified
CPT/HCPCS: 36415; 82306; 82607; 82728; 82746; 83540; 85045; 86364

== ENCOUNTER 2024-08-08 15:14 | Outpatient (AMB) | payer BC, SELFPAY ==
--- NOTE | 2024-08-08 15:19 | MHC.OFFVIS ---
Vital Signs 08/08/24 15:31 Height 5 ft 2 in Weight 153 lb 14.122 oz BMI 28.1 BP 138/74 Blood Pressure Location Rt brachial Position Sitting Pulse 60 Pulse Source Pulse Oximeter Pulse Oximetry (%) 100 Oxygen Delivery Method Room Air Intake Visit Reasons: 6 mo f/u GERD Intake Note: ESTABLISHED PATIENT for mgmt of GERD + Anemia. Reminded of labs 08/04. Plans to have done 08/05 Chief Complaint; C/O worsening reflux + epigastric pain, occasional constipation w/o signs of hemorrhoids per pt. Pt denies any additional concerns or sx at this time. Timber Management Professor Required: Yes Timber Management Professor Services: Timber Management Professor Present Timber Management Professor Name: [facility] [place] Pete Information Interpreted: clinical only Accompanied by: Self / Same As Patient Allergies No Known Allergies Allergy (Verified 08/08/24 15:19) HPI HPI 6 mo f/u GERD: Details: LAST VISIT: Normochromic normocytic anemia Postprandial epigastric pain GERD (gastroesophageal reflux disease) Plan Will send patient to rule out celiac, H pylori test today and if positive will treat empirically. Will check vitamin B12, folate and vitamin-D level. Unsure when patient will go for hemorrhoidectomy, will hold off on colonoscopy, however she is due to go for more blood work and if level continues to be low she will be booked for procedure. Patient denies any issues with anesthesia in the past. No history of sleep apnea. Not on any anticoagulation medication. ? Thank you for allowing me to participate in her care Orders Orders Transglutaminase Ab IgG 02/15/24 R10.9 Transglutaminase IgA 02/15/24 R10.9 H Pylori Breath Test 02/18/24 K21.9 Vitamin B12 and Folate 02/15/24 R19.7 Vitamin D 25-OH (D2 and D3) 02/15/24 E55.9 Medications New famotidine (Pepcid) 20 mg PO BEDTIME 30 tabs 3RF K21.9 TODAY'S VISIT Patient is here today for follow-up. Patient recently just did her blood work and vitamin-D is not packet. Negative for celiac vitamin B12 and folate normal. Breath test was negative for H pylori. 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 Review of Systems Const Denies weight gain and Denies weight loss ENT Reports no additional complaints, Denies dysphagia and Denies odynophagia Card Reports no additional complaints Resp Reports no additional complaints GI Denies abdominal pain, Denies belching, Denies melena, Reports bloating (Occasional), Denies change in bowel habits, Reports constipation, Denies dysphagia, Denies excessive flatus, Denies dyspepsia, Reports heartburn (Occasional), Denies diarrhea, Denies loose stools, Denies nausea, Denies odynophagia and Denies vomiting Reports no additional complaints Musc Reports no additional complaints Neuro Reports no additional complaints Psych Reports no additional complaints Endo Reports no additional complaints Physical Exam Vital Signs: Last Vital Signs Pulse 60 08/08/24 15:31 BP 138/74 08/08/24 15:31 Pulse Ox 100 08/08/24 15:31 Oxygen Delivery Method Room Air 08/08/24 15:31 BMI result Body Mass Index 28.1 Const General: healthy appearing, no acute distress and well developed Nutritional Appearance: well nourished Orientation/consciousness: patient oriented x3 Resp Effort & Inspection: normal respiratory effort, able to speak in complete sentences, no tracheal deviation and symmetric chest movement Auscultation: clear to auscultation bilaterally Cardio Rate: regular rate GI Inspection: Yes normal to inspection and No distended Palpation (GI): Soft to palpation, not firm, nontender and No hepatosplenomegaly present Auscultation: normal bowel sounds General: Yes no CVA tenderness Back/Spine/Pelvis Back: no CVA tenderness Skin General skin exam: elasticity normal, turgor normal and dry skin Neuro General: patient oriented x3 Psych Appearance: grossly normal Mental Status: mental status grossly normal Results Reviewed Results Reviewed: Laboratory Tests 02/15/24 05/27/24 08/05/24 16:15 15:22 15:52 Ferritin 588 H 350 H Total Bilirubin 0.1 AST 23 ALT 23 Alkaline Phosphatase 67 Vitamin B12 526 Folate 10.4 Tiss Transglutamin IgG <1.0 Tiss Transglutamin IgA <1.0 H. pylori Breath Test Negative Assessment & Plan Assessment & Plan (1) Normochromic normocytic anemia: Code(s): D64.9 - Anemia, unspecified Category: Medical (2) Postprandial epigastric pain: Code(s): R10.13 - Epigastric pain (3) GERD (gastroesophageal reflux disease): Code(s): K21.9 - Gastro-esophageal reflux disease without esophagitis Qualifiers: Esophagitis presence: esophagitis presence not specified Qualified Code(s): K21.9 - Gastro-esophageal reflux disease without esophagitis (4) Constipation: Code(s): K59.00 - Constipation, unspecified Qualifiers: Constipation type: slow transit constipation Qualified Code(s): K59.01 - Slow transit constipation (5) Postprandial abdominal bloating: Code(s): R14.0 - Abdominal distension (gaseous) Plan Continue avoiding dietary triggers and like that snacking. Continue famotidine at night time. Staying upright for minimal 3 hours after meals discussed with patient. Patient will start omeprazole 20 mg half an hour before breakfast. Patient was encouraged to take Dulcolax tablets every day. Low FODMAP diet discussed. List of food recommended as well as list of food to avoid given to patient. Lab results discussed with patient. Normal transglutaminase, awaiting for vitamin-D levels. H pylori was negative. Patient will follow-up in 6 months, sooner on as needed basis food patient is agreeable to this plan and verbalizes understanding of instructions. She was given the opportunity to ask questions and all questions answered. Thank you for allowing me to participate in her care Medications: New omeprazole 20 mg PO DAILY 30 caps 3RF K21.9 - Gastro-esophageal reflux disease without esophagitis bisacodyl (Dulcolax (bisacodyl)) 10 mg (2 x 5 mg) PO BEDTIME 60 tabs 4RF Coding Level of Care Code Est Pt Level 4 (41272) Complex EM visit Add On G2211 Diagnoses Normochromic normocytic anemia D64.9 Postprandial epigastric pain R10.13 Gastroesophageal reflux disease, unspecified whether esophagitis present K21.9 Esophagitis presence: esophagitis presence not specified Slow transit constipation K59.01 Constipation type: slow transit constipation Postprandial abdominal bloating R14.0 Time Spent (min) 35 Comment 25 minutes spent with patient and additional 10 minutes spent reviewing her records
[2024-08-08 15:31] VITALS: BP 138/74; PULSE 60; O2SAT 100; BMI 28.1
== END 2024-08-08 16:01 | disposition home or self-care (01) ==
LOC: HO.HGI 15:15
PROVIDERS: PCP Orthopaedic Surgery; Visit Provider Nurse Practitioner Family
DX: D64.9 Anemia, unspecified (principal); R10.13 Epigastric pain; K21.9 Gastro-esophageal reflux disease without esophagitis; K59.01 Slow transit constipation; R14.0 Abdominal distension (gaseous)
CPT/HCPCS: 99214

== ENCOUNTER 2024-10-06 14:33 | Outpatient (REF) | payer BC, SELFPAY ==
[2024-10-06 17:54] LABS: MANUAL DIFF FLAG NO
[2024-10-06 18:17] LABS: Basophils Percent Auto 0.5 % (0-2); Eosinophils Absolute Auto 0.1 X10*3/uL (0.0-0.4); Eosinophils Percent Auto 1.8 % (0-4); Hematocrit 32.6 % (37.0-47.0); Hemoglobin 11.3 g/dl (12.0-16.0); Imm Gran Abs Auto 0.02 X10*3/uL (0.00-0.03); Imm Gran Pct Auto 0.3 % (0.0-0.4); Lymphocytes Absolute Auto 1.7 X10*3/uL (1.2-4.9); Lymphocytes Percent Auto 23.6 % (20-40); Mean Corpuscular HGB Conc 34.7 g/dl (31.0-35.0); Mean Corpuscular Hemoglobin 30.5 pg (27.0-33.0); Mean Corpuscular Volume 88.1 fL (80.0-98.0); Mean Platelet Volume 11.1 fL (9.4-12.3); Monocytes Absolute Auto 0.8 X10*3/uL (0.1-1.2); Monocytes Percent Auto 10.8 % (2-11); Neutrophils Absolute Auto 4.6 x10*3/uL (2.0-8.3); Platelet Count 282 X10*3/uL (160-400); Red Cell Distribution Width 14.5 % (11.0-16.0); White Blood Count 7.3 X10*3/uL (4.8-10.8)
[2024-10-06 18:22] LABS: Alanine Aminotransferase 23 U/L (0-31); Albumin Level 4.4 g/dL (3.5-5.0); Alkaline Phosphatase 63 U/L (39-117); Anion Gap 12 (12-20); Aspartate Amino Transferase 26 U/L (5-31); Bilirubin Total 0.1 mg/dL (0.0-1.0); Blood Urea Nitrogen 22 mg/dL (9-16); Calcium 9.4 mg/dL (8.4-10.2); Carbon Dioxide 24 mmol/L (22-29); Chloride 107 mmol/L (96-108); Cholesterol 240 mg/dL (<200); Estimated Glomerular Filt Rate > 60; Glucose Random 87 mg/dL (60-115); HDL Cholesterol 86 mg/dL (>40); LDL Cholesterol Calculated 133 mg/dL (<100); Sodium 139 mmol/L (135-145); Total Protein 7.4 g/dL (6.5-8.0); Triglycerides 107 mg/dL (<150)
[2024-10-06 18:29] LABS: TSH reflex Free T4 1.03 uIU/mL (0.32-4.0)
== END 2024-10-06 14:34 | disposition home or self-care (01) ==
LOC: HO.CHCLDS 14:33
PROVIDERS: Visit Provider Internal Medicine
DX: D64.9 Anemia, unspecified (principal); Z00.00 Encounter for general adult medical examination without abnormal findings; Z13.6 Encounter for screening for cardiovascular disorders
CPT/HCPCS: 36415; 80053; 80061; 84443; 85025

== ENCOUNTER 2024-10-24 12:42 | Outpatient (REF) | payer BC, SELFPAY ==
--- OUTSIDE RECORDS SUMMARY | 2024-10-24 14:19 | XMS_ITS | Encounter Summary ---
Author Organization [employer] Address [address] [place] [address] [address] [place] [id number] Care Team Providers Care Electrical Tech Name Role Phone Magalys Mayfield MD Primary Care Provider [phone] Encounter Details Date Type Department Care Team ([facility] st Contact Info) Description 10/07/2024 Orders Only [facility] [address], [place] [id number] Magalys Mayfield MD [address] [place] [address] Anemia, unspecified type (Primary Dx) Social History Tobacco Use Types Packs/Day Years Used Date Smoking Tobacco: Never Passive Smoke Exposure: Never Smokeless Tobacco: Never Alcohol Use Standard Drinks/Week Comments Not Currently 0 (1 standard drink = 0.6 oz pur e alcohol) Depression Answer Date Recorded Patient Health Questionnaire-9 Score 8 09/28/2023 Patient Health Questionnaire-9 Score 8 09/28/2023 Last PHQ-9: Questionnaire Data Not on file 0 09/28/2023 Housing Stability Answer Date Recorded What is your housing situation today? I have inna eastman 09/27/[address] you li ve. Do you have problems with any of the following? None of the above 09/27/2024 Food Insecurity Answer Date Recorded Within the past 12 months, y ou worried that your food would run out before you got money to buy more: Never True 09/27/2024 Within the past 12 months,th e food you bought just didn't last and you didn't have enough money to get more: Never True Transportation Answer Date Recorded In the past 12 months, has l ack of transportation kept you from medical appts, meetings, work or from getting things needed for daily living? No 09/27/2024 Utilities Answer Date Recorded In the past 12 months, has t he electric, gas, oil or water company threatened to shut off services in your home? No 09/27/2024 Depression Answer Date Recorded Patient Health Questionnaire-2 Score 2 09/28/2023 Internet Access Answer Date Recorded Internet Access Q1 Yes 09/27/2024 Internet Access Q2 Not on file 09/27/2024 Comments No Sex and Gender Information Value Date Recorded Sex Assigned at Female 03/17/2022 10:21 AM EDT Legal Sex Female 10:21 AM EDT Gender Identity Female 03/17/2022 10:21 AM EDT Sexual Orientation Straight 03/17/2022 10 :21 AM EDT documented as of this encounter Plan of Treatment Scheduled Orders Name Type Priority Associated Diagnoses Orde r Schedule CBC auto differential Lab Routine Anemia, unspecified type Expected: 10/07/2024 (Approximate), Expires: 10/07/2025 documented as of this encounter Visit Diagnoses Diagnosis Anemia, unspecified type- Primary documented in this encounter Additional Health Concerns Assessment Noted Time PHQ-9 Depression Total Score: 8 09/28/19 24 3:26 PM EDT documented as of this encounter Care Teams Electrical Tech Relationship Specialty Start Date End Date Magalys Mayfield MD [address] [place] [id number] PCP - General Internal Medicine 05/18/18 documented as of this encounter
== END 2024-10-24 12:43 | disposition home or self-care (01) ==
LOC: HO.MAMMO 12:42
PROVIDERS: PCP Internal Medicine; Visit Provider Internal Medicine
DX: Z12.31 Encounter for screening mammogram for malignant neoplasm of breast (principal)
CPT/HCPCS: 77063; 77067

== ENCOUNTER → 2024-10-24 12:45 | Outpatient (BNV) | payer BC, SELFPAY | PROVIDERS: PCP Internal Medicine; Visit Provider Internal Medicine | DX: Z12.31 Encounter for screening mammogram for malignant neoplasm of breast (principal) | CPT/HCPCS: 77063; 77067 ==

== ENCOUNTER 2025-02-06 15:22 | Outpatient (AMB) | payer BC, SELFPAY ==
--- NOTE | 2025-02-06 15:36 | A.OFFVIS_ITS ---
Vital Signs 02/06/25 15:42 Height 5 ft 2 in Weight 153 lb BMI 28.0 BP 118/70 Blood Pressure Location Rt brachial Position Sitting Pulse 68 Pulse Source Pulse Oximeter Pulse Oximetry (%) 100 Oxygen Delivery Method Room Air Intake Visit Reasons: 6m Intake Note: ESTABLISHED PATIENT for mgmt of GERD + Anemia. Chief Complaint; C.O. mild persistence intermittently of constipation despite current therapy. Pt believes that this is attributed to her lack of water intake. Electron Microscopist Required: Yes Electron Microscopist Services: Electron Microscopist Offered & Declined Accompanied by: Self / Same As Patient Allergies No Known Allergies Allergy (Verified 08/08/24 15:19) HPI HPI 6m: Details: LAST VISIT Normochromic normocytic anemia Postprandial epigastric pain GERD (gastroesophageal reflux disease) Constipation Postprandial abdominal bloating Plan Continue avoiding dietary triggers and like that snacking. Continue famotidine at night time. Staying upright for minimal 3 hours after meals discussed with patient. Patient will start omeprazole 20 mg half an hour before breakfast. Patient was encouraged to take Dulcolax tablets every day. Low FODMAP diet discussed. List of food recommended as well as list of food to avoid given to patient. Lab results discussed with patient. Normal transglutaminase, awaiting for vitamin-D levels. H pylori was negative. Patient will follow-up in 6 months, sooner on as needed basis food patient is agreeable to this plan and verbalizes understanding of instructions. She was given the opportunity to ask questions and all questions answered. ? Thank you for allowing me to participate in her care New omeprazole 20 mg PO DAILY 30 caps 3RF K21.9 bisacodyl (Dulcolax (bisacodyl)) 10 mg (2 x 5 mg) PO BEDTIME 60 tabs 4RF TODAY'S VISIT Patient is here today for follow-up. Patient reports that she continues to be constipated. Patient takes Dulcolax and unable to have a bowel movement for 2-3 days. Patient does notice that when she drinks water she moves her bowels better. Patient denies any abdominal pain or discomfort denies any melena, hematochezia, unintentional weight loss or ribbon like stools. Patient denies any dyspepsia, dysphagia or odynophagia. Patient is taking famotidine at bedtime and omeprazole in the morning. Patient is also taking iron and she thinks that iron is contributing to her being constipated. 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 Review of Systems Const Denies weight gain and Denies weight loss ENT Reports no additional complaints, Denies dysphagia and Denies odynophagia Card Reports no additional complaints Resp Reports no additional complaints GI Denies abdominal pain, Denies belching, Denies melena, Reports bloating (Occasional), Denies change in bowel habits, Reports constipation, Denies dysphagia, Denies excessive flatus, Denies dyspepsia, Reports heartburn (Occasional), Denies diarrhea, Denies loose stools, Denies nausea, Denies odynophagia and Denies vomiting Reports no additional complaints Musc Reports no additional complaints Neuro Reports no additional complaints Psych Reports no additional complaints Endo Reports no additional complaints Physical Exam Vital Signs: Last Vital Signs Pulse 68 02/06/25 15:42 BP 118/70 02/06/25 15:42 Pulse Ox 100 02/06/25 15:42 Oxygen Delivery Method Room Air 02/06/25 15:42 BMI result Body Mass Index 28.0 Const General: healthy appearing, no acute distress and well developed Nutritional Appearance: well nourished Orientation/consciousness: patient oriented x3 Resp Effort & Inspection: normal respiratory effort, able to speak in complete sentences, no tracheal deviation and symmetric chest movement Auscultation: clear to auscultation bilaterally Cardio Rate: regular rate GI Inspection: Yes normal to inspection and No distended Palpation (GI): Soft to palpation, not firm, nontender and No hepatosplenomegaly present Auscultation: normal bowel sounds General: Yes no CVA tenderness Back/Spine/Pelvis Back: no CVA tenderness Skin General skin exam: elasticity normal, turgor normal and dry skin Neuro General: patient oriented x3 Psych Appearance: grossly normal Mental Status: mental status grossly normal Assessment & Plan Assessment & Plan (1) External hemorrhoids: Code(s): K64.4 - Residual hemorrhoidal skin tags Category: Surgical (2) Constipation: Code(s): K59.00 - Constipation, unspecified Qualifiers: Constipation type: slow transit constipation Qualified Code(s): K59.01 - Slow transit constipation (3) Gastroesophageal reflux disease: Code(s): K21.9 - Gastro-esophageal reflux disease without esophagitis Qualifiers: Esophagitis presence: esophagitis presence not specified Qualified Code(s): K21.9 - Gastro-esophageal reflux disease without esophagitis Plan Patient will continue taking omeprazole in the morning and famotidine as needed at bedtime. Continue avoiding dietary triggers in late night snacking. Staying upright for minimum 3 hours after meals discussed with patient. Patient will increase fluid intake and activity to promote better bowel motility. Continue taking Dulcolax. Patient can start taking [id number] MiraLax as needed. Follow-up in 1 year, sooner on as needed basis. She is agreeable to this plan and verbalizes understanding of instructions. She was given the opportunity to ask questions and all questions answered. Thank you for allowing me to participate in her care Coding Level of Care Code Est Pt Level 3 (71998) Diagnoses External hemorrhoids K64.4 Slow transit constipation K59.01 Constipation type: slow transit constipation Gastroesophageal reflux disease, unspecified whether esophagitis present K21.9 Esophagitis presence: esophagitis presence not specified Time Spent (min) 30 Comment 20 minutes spent with patient and additional 10 minutes spent reviewing her records
[2025-02-06 15:42] VITALS: BP 118/70; PULSE 68; O2SAT 100; BMI 28.0
== END 2025-02-06 16:06 | disposition home or self-care (01) ==
LOC: HO.HGI 15:23
PROVIDERS: PCP Internal Medicine; Visit Provider Nurse Practitioner Family
DX: K64.4 Residual hemorrhoidal skin tags (principal); K59.01 Slow transit constipation; K21.9 Gastro-esophageal reflux disease without esophagitis
CPT/HCPCS: 99213

== ENCOUNTER 2025-04-03 12:51 | Outpatient (REF) | payer BC, SELFPAY ==
[2025-04-03 14:10] LABS: MANUAL DIFF FLAG NO
[2025-04-03 14:18] LABS: Hematocrit 36.0 % (37.0-47.0); Hemoglobin 11.5 g/dl (12.0-16.0); Imm Gran Abs Auto 0.01 X10*3/uL (0.00-0.03); Imm Gran Pct Auto 0.2 % (0.0-0.4); Lymphocytes Absolute Auto 1.7 X10*3/uL (1.2-4.9); Mean Corpuscular HGB Conc 31.9 g/dl (31.0-35.0); Mean Corpuscular Hemoglobin 27.3 pg (27.0-33.0); Mean Corpuscular Volume 85.3 fL (80.0-98.0); NRBC Abs Auto 0.000 X10*3/uL (0.0-0.012); NRBC Pct Auto 0.0 /100WBC (0.0-0.2); Platelet Count 287 X10*3/uL (160-400); Red Blood Count 4.22 X10*6/uL (4.20-5.50); White Blood Count 6.0 X10*3/uL (4.8-10.8)
[2025-04-07 17:33] LABS: Follicle Stimulating Hormone 108.3 mIU/mL
[2025-04-08 00:19] LABS: Estradiol Ultra Sensitive 13 pg/mL
== END 2025-04-03 12:52 | disposition home or self-care (01) ==
LOC: HO.CHCLDS 12:51
PROVIDERS: PCP Internal Medicine; Visit Provider Family Medicine
DX: N95.1 Menopausal and female climacteric states (principal); D64.9 Anemia, unspecified
CPT/HCPCS: 36415; 82670; 83001; 85025